=== PATIENT | female | born 1990 | race Caucasian/White ===

== ENCOUNTER 2022-09-23 14:04 | Outpatient (CLI) | payer OTHER | END 2022-09-23 14:05 | disposition home or self-care (01) | LOC: CSHULT 14:04 | PROVIDERS: ATTEND Family Medicine | DX: O09.892 Supervision of other high risk pregnancies, second trimester (principal); Z3A.21 21 weeks gestation of pregnancy | CPT/HCPCS: 76805 ==

== ENCOUNTER 2023-01-17 15:10 | Inpatient (IN) | payer OTHER ==
[2023-01-17 15:39] VITALS: BMI 33.5
[2023-01-17 15:52] LABS: Fetal Membranes Rupture RUPTURE DETECTED (No Rupture)
[2023-01-17] MEDS ORDERED: Acetaminophen 500 MG TAB PO PRN (16:27)
[2023-01-17] MEDS ORDERED: Butorphanol Tartrate 1 MG/ML VIAL SLOW IVP PRN (16:28)
[2023-01-17] MEDS ORDERED: Ondansetron PF 4 MG/2 ML Vial IVP PRN ×4 (16:29→23:08)
[2023-01-17] MEDS ORDERED: Lactated Ringer's 1,000 ML IV SCH ×2 (16:30→18:30)
[2023-01-17] MEDS ORDERED: fentaNYL/Ropivacaine Epidural 100 ML ONE (16:58)
[2023-01-17 17:10] LABS: Hematocrit 36.6 % (34.9-44.5); Hemoglobin 12.3 g/dL (12.0-15.5); Platelet Count 222 10x3/uL (150-450)
[2023-01-17 17:40] LABS: HBSAg Index 0.18 S/CO (0-0.99); Hep B Surf Ag - L&D Non-Reactive S/CO (NonReactive)
[2023-01-17 17:41] LABS: Syphilis Antibody Nonreactive (Nonreactive); Syphilis Antibody Index 0.09 S/CO (<1.00 Non-Reactive)
[2023-01-17] MEDS ORDERED: Moisturizing Cream (Eucerin) 113 GM JAR TOP PRN (17:47)
[2023-01-17] MEDS ORDERED: ePHEDrine Sulfate 50 MG/10 ML VIAL SLOW IVP PRN (17:47)
[2023-01-17] MEDS ORDERED: Lactated Ringer's 500 ML IV PRN (17:47)
[2023-01-17] MEDS ORDERED: diphenhydrAMINE 50 MG/ML VIAL IVP PRN (17:47)
[2023-01-17] MEDS ORDERED: Acetaminophen 325 MG TAB PO PRN (17:47)
[2023-01-17] MEDS ORDERED: Promethazine HCl 25 MG/ML VIAL IM PRN ×2 (17:47→23:08)
[2023-01-17] MEDS ORDERED: Naloxone HCl 0.4 mg/ml Vial IVP PRN ×2 (17:47)
[2023-01-17] MEDS ORDERED: Communication Order-Pharmacy FS SCH (18:00)
[2023-01-17] MEDS ORDERED: Oxytocin 30 units/NS 500 ML 500 ML IV SCH ×5 (18:00→23:08)
[2023-01-17] MEDS ORDERED: fentaNYL 2 mcg/Ropivacaine 0.2% Epidural 100 ML CADD EPIDURAL SCH (18:00)
[2023-01-17] MEDS ORDERED: Misoprostol 200 MCG TAB PR PRN (18:28)
[2023-01-17] MEDS ORDERED: Diphenoxylate HCl/Atropine Tablet PO PRN (18:28)
[2023-01-17] MEDS ORDERED: HYDROcodone/Acetaminophen 5/325 mg Tablet PO PRN ×2 (18:28→23:08)
[2023-01-17] MEDS ORDERED: Methylergonovine 0.2 MG/ML VIAL IM PRN (18:28)
[2023-01-17] MEDS ORDERED: Ibuprofen 800 MG TAB PO PRN (18:28)
[2023-01-17] MEDS ORDERED: Tranexamic Acid 1,000 MG/10 ML VIAL IVP PRN (18:28)
[2023-01-17] MEDS ORDERED: Carboprost 250 MCG/ML AMP IM PRN (18:28)
[2023-01-17] MEDS ORDERED: Lidocaine 1% (PF) 30 ML VIAL SC PRN (18:28)
[2023-01-17] MEDS ORDERED: hydrALAZINE 20 MG/ML VIAL SLOW IVP PRN ×2 (18:51→23:08)
[2023-01-17] MEDS ORDERED: Milk Of Magnesia 30 ML UDCUP PO PRN (23:08)
[2023-01-17] MEDS ORDERED: Bisacodyl 10 MG SUPP PR PRN (23:08)
[2023-01-17] MEDS ORDERED: Boostrix 0.5 ML (Tdap) VIAL (>/=7 yrs of age) IM ONE (23:08)
[2023-01-17] MEDS ORDERED: Lanolin Ointment 7 GM TUBE TOP PRN (23:08)
[2023-01-17] MEDS ORDERED: diphenhydrAMINE 25 MG CAP PO PRN (23:08)
[2023-01-17] MEDS ORDERED: Benzocaine-Menthol 82.5 ML CAN TOP PRN (23:08)
[2023-01-17] MEDS ORDERED: Docusate 100 MG CAP PO SCH (23:15)
[2023-01-18] MEDS: Ibuprofen 800 MG TAB PO SCH ×3 (04:52→21:47)
[2023-01-18] MEDS ORDERED: Prenatal Vitamin 1 TAB PO SCH (09:00)
[2023-01-18] MEDS ORDERED: Bupivacaine 0.25% HCL 30 ML VIAL ONE (14:00)
[2023-01-18] MEDS: Ferrous Sulfate 325 MG TAB PO SCH ×2 (14:16→19:26)
[2023-01-18] MEDS: Docusate 100 MG CAP PO SCH ×2 (14:17→21:48)
[2023-01-18 19:32] VITALS: TEMP 98.5
[2023-01-19] MEDS: Ibuprofen 800 MG TAB PO SCH (05:44)
[2023-01-19 07:38] VITALS: BP 109/72
== END 2023-01-19 11:30 | disposition home or self-care (01) | DRG 807 ==
LOC: CSHLD/OP 15:10 → CSHLD 17:08 → CSHPP 23:23
PROVIDERS: ADMIT Family Medicine; ATTEND Family Medicine
PROC: 10E0XZZ Delivery of Products of Conception, External Approach (ICD-10-PCS; principal; 2023-01-17)
DX: O42.02 Full-term premature rupture of membranes, onset of labor within 24 hours of rupture (principal); Z37.0 Single live birth; Z3A.38 38 weeks gestation of pregnancy; O69.81X0 Labor and delivery complicated by cord around neck, without compression, not applicable or unspecified; O69.89X0 Labor and delivery complicated by other cord complications, not applicable or unspecified
CPT/HCPCS: 51702; 84112; 85014; 85018; 85049; 86780; 86850; 86900; 86901; 87340; 99285; J2405; J2590; S0020